=== PATIENT | male | born 1985 | race African-American/Black ===

== ENCOUNTER 2024-04-13 14:08 | Emergency (ER) | payer OTHER, SELFPAY ==
--- NOTE | ~2024-04-13 | XR_ITS ---
EXAM: XR foot LT min 3V DATE: 04/13/2024 15:04 HISTORY: foot pain X 6 WEEKS, TO ARCH OF FOOT . COMPARISON: None available. FINDINGS: Normal mineralization. No fracture or dislocation. No lytic or blastic lesion. Severe guerra ux valgus. Moderate degenerative change at the first MTP joint. No erosion or periosteal change. Soft tissues within normal limits. IMPRESSION: No acute osseous finding the left foot. Reviewed, dictated and finalized at location K. [employer] SYSTEM[employer] ANALYST
[2024-04-13 14:10] VITALS: BP 133/71; PULSE 73; RESP 18; TEMP 36.4; O2SAT 100
--- NOTE | 2024-04-13 15:48 | ED_ITS ---
HPI - General Adult General Chief complaint: Extremity Injury, Lower Stated complaint: foot injury Time Seen by Provider: 04/13/24 14:37 History of Present Illness HPI narrative: 39-year-old male presents emergency department for evaluation for left foot pain. Patient reports he injured the arch of his foot on 03/03. Patient states he has had time off of work. Patient presented to the emergency department today for evaluation and is requesting a note to return back to work. Patient states he has been using a foot rolled over on the bottom of his feet this seems to be helping with the pain. Patient did get a new pair of more comfortable boots that have increased support and he feels this is also helping. Review of Systems Review of Systems: All systems reviewed & are unremarkable except as noted in HPI and below Exam Narrative: APPEARANCE: Well appearing, no pain, no distress, well-nourished. HEAD: normocephalic, atraumatic. EYES: PERRLA/EOMI, conjunctivae clear. NOSE: Normal no drainage EARS:TMS clear with good light reflex. THROAT: Pharynx clear, no exudate. NECK: Supple. No adenopathy, no masses. RESPIRATORY: Airway patent, respirations nonlabored. Clear to auscultation bilaterally, no rales, rhonchi, wheezing. CARDIOVASCULAR: Regular rate and rhythm without murmurs rubs or gallops. ABDOMINAL: Soft, nontender, nondistended, normal bowel sounds MUSCULOSKELETAL: Tenderness to dorsal aspect of left foot with no come assist, no bony tenderness to palpation. NEURO: Alert. Cranial nerves II through XII intact. Grossly intact SKIN: Warm, dry. Normal Color Course Vital Signs Vital signs: Vital Signs Temperature 97.6 F 04/13/24 14:10 Pulse Rate 73 04/13/24 14:10 Respiratory Rate 18 04/13/24 14:10 Blood Pressure 133/71 04/13/24 14:10 Pulse Oximetry 100 04/13/24 14:10 Oxygen Delivery Room Air 04/13/24 14:10 Temperature 97.6 F 04/13/24 14:10 Pulse Rate 69 04/13/24 15:59 Respiratory Rate 16 04/13/24 15:59 Blood Pressure 116/64 04/13/24 15:59 Pulse Oximetry 100 04/13/24 15:59 Oxygen Delivery Room Air 04/13/24 14:10 Medical Decision Making MDM Narrative Medical decision making narrative: 39-year-old male presenting ED for evaluation for left foot pain after injury on . Patient reports he did have time off of work and is now requesting a note to return back to work. Patient states that he is still having some pain but reports that using a foot roller and more comfortable supportive shoes is helping. Patient will be provided follow-up with Podiatry. Differential Diagnosis Differential Diagnosis: Plantar fasciitis, foot fracture, foot strain, hematoma Vital Signs Vital Signs: Vital Signs Temperature 97.6 F 04/13/24 14:10 Pulse Rate 73 04/13/24 14:10 Respiratory Rate 18 04/13/24 14:10 Blood Pressure 133/71 04/13/24 14:10 Pulse Oximetry 100 04/13/24 14:10 Oxygen Delivery Room Air 04/13/24 14:10 Temperature 97.6 F 04/13/24 14:10 Pulse Rate 69 04/13/24 15:59 Respiratory Rate 16 04/13/24 15:59 Blood Pressure 116/64 04/13/24 15:59 Pulse Oximetry 100 04/13/24 15:59 Oxygen Delivery Room Air 04/13/24 14:10 Imaging Data Radiologist's impression: Impressions Foot X-Ray 04/13/24 15:08 IMPRESSION: No acute osseous finding the left foot. Discharge Plan Discharge Clinical Impression: Injury of foot Patient Disposition: Home, Self-Care Condition: Stable Instructions: Antibiotic Form, Plantar Fasciitis (ED), Foot Contusion (ED) Additional Instructions: Tylenol and ibuprofen for pain control. A follow-up with Podiatry as needed. If you have any worsening symptoms then please call or return to the emergency department. Patient Language: Bengali Follow-up/Referrals: Olman Gutiérrez Jr., DPM [Physician] - PHYSICIAN,FOIL WRAPPER [Primary Care Provider] - Stand Alone Forms: Work/School Release IP
[2024-04-13 15:59] VITALS: BP 116/64; PULSE 69; RESP 16; O2SAT 100
== END 2024-04-13 16:02 | disposition home or self-care (01) ==
PROVIDERS: Emergency Provider Emergency Medicine
DX: S99.922D Unspecified injury of left foot, subsequent encounter (principal); X58.XXXD Exposure to other specified factors, subsequent encounter
CPT/HCPCS: 73630; 99283